=== PATIENT | male | born 1970 | race Caucasian/White ===

== ENCOUNTER 2020-01-02 11:04 | Emergency (ER) | payer MEDICAID ==
[~2020-01-02] VITALS: Ht 167.6 cm; Wt 92.5 kg
[2020-01-02 11:24] VITALS: BP 160/101; Ht 167.6 cm; Wt 92.5 kg
== END 2020-01-02 12:36 | disposition home or self-care (01) ==
LOC: ED 11:04
DX: H60.501 Unspecified acute noninfective otitis externa, right ear (principal); I50.9 Heart failure, unspecified; I10 Essential (primary) hypertension; E11.9 Type 2 diabetes mellitus without complications; Z88.0 Allergy status to penicillin
CPT/HCPCS: 82962

== ENCOUNTER 2020-01-04 12:01 | Emergency (ER) | payer MEDICAID ==
[~2020-01-04] VITALS: Ht 167.6 cm; Wt 91.6 kg
[2020-01-04 12:19] VITALS: Ht 167.6 cm; Wt 91.6 kg
[2020-01-04 12:45] VITALS: BP 155/90
== END 2020-01-04 12:46 | disposition home or self-care (01) ==
LOC: ED 12:01
DX: H60.91 Unspecified otitis externa, right ear (principal); I11.0 Hypertensive heart disease with heart failure; I50.9 Heart failure, unspecified; E11.9 Type 2 diabetes mellitus without complications; Z88.0 Allergy status to penicillin